=== PATIENT | male | born 1965 | race Caucasian/White ===

== ENCOUNTER 2022-03-24 10:04 | Emergency (ER) | payer OTHER, SELFPAY ==
[2022-03-24 10:08] VITALS: BP 128/86; PULSE 97; RESP 18; TEMP 36.6; O2SAT 94; BMI 35.5
--- NOTE | 2022-03-24 10:17 | CT_ITS ---
WS: [id number] CT HEAD NONCONTRAST HISTORY: visual disturbance for 2 weeks TECHNIQUE: Contiguous axial imaging performed through the brain in 2.5 mm imaging. Bone and soft tiss ue windows. Sagittal and coronal reformats reviewed. All CT scans at [facility] use at least one of these dose optimization techniques: automated exposure control; mA and/or kV adjustment per pa tient size (includes targeted exams where dose is matched to clinical indication); or iterative recon struction. DLP: 1038.51 mGy.cm COMPARISON: None available. No acute intracranial hemorrhage, midline shift or mass effect. Very mild atrophy and small vessel ischemic disease. No prior infarct. There is no mass effect upon the optic chiasm or change in attenuation along the optic tracts or radiations. Ventricles: Normal size with no hydrocephalus. No inferior displacement of the cerebellar tonsils. Paranasal sinuses: As visualized are clear. Mastoid air cells: Well pneumatized. Calvarium and scalp: Skull is intact with no soft tissue edema or swelling. CT/CT head wo con* [id number] IMPRESSION: 1. No acute intracranial hemorrhage or edema. 2. Mild atrophy and small vessel ischemic disease. 3. No mass effect upon the optic chiasm or radiation.
--- NOTE | 2022-03-24 11:43 | ED_ITS ---
HPI - General Adult General: Chief complaint: General Medical Stated complaint: Vision blur, dr sent for poss stroke Time Seen by Provider: 03/24/22 11:31 History of Present Illness: Patient is a 56-year-old male with a history of diabetes who presents the emergency room bilateral visual blurriness for the last 2 weeks. Patient tells me that on 03/08/2022, patient woke up with blurr iness on both sides. Patient denies any diplopia, amaurosis fugax, scotoma. Patient says that this started all of a sudden. Patient has been followed with Dr. Espinoza and was told to come to the emergency room for evaluation of stroke. Patient tells me since then that his vision has been blurry. Patient at baseline does not wear glasses. Patient denies having any weakness in the arms or legs, sensation changes, gait or balance instability, language speaking or communication difficulty. Patient denies any facial droop or any other changes at this time. No complaints of chest pain, shortness breath, palpitation, nausea/vomiting, diarrhea melena or hematochezia or abdominal pain. Patient denies any complaints. Onset:2 weeks ago Duration:2 weeks Location:home Severity:moderate Associated symptoms: Deny chest pain, dyspnea, nausea, rash, palpitations or vomiting Review of Systems Const: Denies: fever(s) or chills Eyes: Denies: change in vision ENMT: Reports: other (+b/l visual blurriness); Denies: mouth pain Card: Denies: chest pain or palpitations Resp: Denies: dyspnea or non-productive cough GI: Denies: abdominal pain, nausea, vomiting or diarrhea : Denies: dysuria Musc: Denies: extremity pain Skin/Breast: Denies: rash or new lesions Neuro: Denies: weakness in extremities Psych: Reports: other (Normal mood) Cody/Lymph: Denies: easy bruising PFSH ED PFSH: Medical History Diabetes Social History Smoking and tobacco status: never smoked Alcohol intake: never Physical Exam Const: COMMON NORMALS: alert HENMT: COMMON NORMALS: atraumatic HEAD & SCALP: atraumatic MOUTH: moist mucous membranes not abnormal Eye: COMMON NORMALS: EOMs intact bilaterally and conjunctivae normal CONJUNCTIVA: Yes conjunctivae normal OTHER: 20/50-70 R 20/50-70 L Neck/C-Spine: COMMON NORMALS: full ROM and supple Resp: COMMON NORMALS: normal respiratory effort and clear to auscultation bilaterally AUSCULTATION: clear to auscultation bilaterally Cardio: COMMON NORMALS: regular rate RATE: regular rate GI: COMMON NORMALS: Soft to palpation and non-tender PALPATION: Yes Soft to palpation Extremity: COMMON NORMALS: full ROM Neuro: SENSORIUM/ORIENTATION: Yes alert MOTOR EXAM: No Abnormal motor strength present and Other motor observations present (no focal motor deficits) OTHER: Mental status? Awake, alert, and oriented to self, year, month, location, and situation.? Following simple axial and appendicular commands.? Has appropriate fund of knowledge, comprehension, and insight.? Able to recall and understands pertinent aspects of medical history and current treatment status.? ? Language? Speech is fluent without word-finding difficulties.? Intact naming, expression, nurse receptionist, and repetition.? ? Cranial nerves? 2,3,4,6: PERRL, EOMI with no nystagmus. See visual acuity above 5: Intact sensation to light touch, symmetric? 7: Smile symmetrical, no facial droop.? 8: Hearing grossly intact.? 9,10: Normal palate movement.? 11: Normal strength in trapezius bilaterally 12: Tongue protrudes midline.? ? Motor examination? Normal bulk & tone. Strength as follows (R/L): Delts (5/5), Biceps (5/5), Triceps (5/5), Wrist ext (5/5), hip flexors (5/5), plantarflexors (5/5), dorsiflexors (5/5). ? Sensation? Light Touch: Grossly intact and equal in upper and lower extremities bilaterally? Romberg: Negative.? Distal joint position sense intact ? Coordination? Somhjo-ui-ihik-finger movements intact without dysmetria or past-pointing.? Rapid fingertaps: preserved amplitude without decriment.? No tremor, myoclonus or truncal ataxia.? ? Gait/stance? Steady, normal narrow base gait with appropriate arm swing and turning.? Tandem gait without hesitation or loss of balance. Psych: COMMON NORMALS: speech normal SPEECH: Yes normal speech MOOD & AFFECT: Yes euthymic mood Course Vital Signs: Vital signs: Vital Signs Temperature 98.1 F 03/24/22 14:48 Pulse Rate 76 03/24/22 14:48 Respiratory Rate 16 03/24/22 14:48 Blood Pressure 137/88 03/24/22 14:48 Pulse Oximetry 95 03/24/22 14:48 Oxygen Delivery Me thod 03/24/22 14:46 MDM - General Adult Medical Decision Making 56-year-old male with history of diabetes presenting to the emergency room for evaluation of bilateral visual blurriness for the last 2 weeks. On physical exa m, patient has a visual acuity of 20/50-70 b/l. Neurological exam is intact. CT scans showed no acute diseases. Lab work-up is unremarkable. At the present time given the fact that has been going on for 2 weeks involvement both eyes, I do not believe this is a stroke symptoms. I discussed case with Dr. Niels Botello who recommended close follow up in clinic in 1-2 weeks. I have given patient follow up with our skilled nursing case manager to be seen by our outpatient by Dr. Botello for evaluation of b/l blurriness. Patient aware of a call from our skilled nursing case manager to schedule for appointment(s) and verbalizes understanding of the importance of following up. Disposition: Discharge. Patient counseled regarding diagnostic impression, treatment plan. Patient given ED strict return precautions to return for continuation, worsening, or development of new symptoms. Instructed to f/u w/ PCP regarding symptoms today. Patient verbalized understanding. Lab Data : 03/24/22 12:22 03/24/22 12:[address] 03/24/22 10:17 IMPRESSION: 1. No acute intracranial hemorrhage or edema. 2. Mild atrophy and small vessel ischemic disease. 3. No mass effect upon the optic chiasm or radiation. Laboratory Results WBC 9.2 10^3/uL (4.0-10.0) 03/24/22 12: RBC 5.11 10^6/uL (4.1-5.3) 03/24/22 12:22 Hgb 15.2 g/dL (11.7-16.6) 03/24/22 12:22 Hct 45.4 % (42.0-52.0) 03/24/22 12:22 MCV 88.8 fl (80-94) 03/24/22 12:22 MCH 29.7 pg (28.0-34.0) 03/24/22 12:22 MCHC 33.5 g/dL (30.0-36.0) 03/24/22 12:22 RDW 12.4 % (12.1-15.1) 03/24/22 12:22 Plt Count 178 10^3/cmm (130-400) 03/24/22 12:22 MPV 10.9 fL (7.4-10.4) H 03/24/22 12:22 Neut % (Auto) 64.9 % 03/24/22 12:22 Lymph % (Auto) 26.2 % 03/24/22 12: Y[place] % (Auto) 7.6 % 03/24/22 12:22 Eos % (Auto) 0.0 % 03/24/22 12:22 Baso % (Auto) 0.5 % 03/24/22 12: Neut # (Auto) 5.98 10^3/uL (1.8-7.7) 03/24/22 12:22 Lymph # (Auto) 2.4 10^3/uL (0.8-4.8) 03/24/22 12:22 [place] # (Auto) 0.7 10^3/uL (0.2-0.9) 03/24/22 12:22 Eos # (Auto) 0.0 10^3/uL (0.0-0.8) 03/24/22 12: Baso # (Auto) 0.1 10^3/uL (0.0-0.1) 03/24/22 12:22 Nucleated RBC % (auto) 0 % 03/24/22 12:22 Nucleated RBCs # 0.0 /100WBC 03/24/22 12:22 Sodium 137 mmol/L (136-145) 03/24/22 12:03 Potassium 4.6 mmol/L (3.5-5.1) 03/24/22 12:03 Chloride 101 mmol/L (98-107) 03/24/22 12:03 Carbon Dioxide 25 mmol/L (22-29) 03/24/22 12:03 Anion Gap 15.6 (5-19) 03/24/22 12:03 BUN 15 mg/dL (6-20) 03/24/22 12:03 Creatinine 0.8 mg/dL (0.7-1.2) 03/24/22 12:03 GFR Calculation 99.3 mL/min (90-130) 03/24/22 12:03 Glucose 259 mg/dL (65-115) H 03/24/22 12:03 Calculated Osmolality 294 mOsm/kg (285-295) 03/24/22 12:03 Calcium 9.3 mg/dL (8.5-10.5) 03/24/22 12:03 Imaging Data Other Imaging: Radiologist's impression: [facility] [address] [place] [address] CT Scan Report Signed Patient: Jon Feldman Unit #: [id number] : [id number] Age/Sex: 56 / M ADM Date: 03/24/22 Loc: ER Room/Bed: Attending Dr: Ordering Provider/Ordering MD: Joe Singh MD Date of Service: 03/24/22 Procedure(s): CT head wo con* [id number] Accession Number(s): [id number] Report Number: [id number] WS: [id number] CT HEAD NONCONTRAST HISTORY: visual disturbance for 2 weeks TECHNIQUE: Contiguous axial imaging performed through the brain in 2.5 mm imaging. Bone and soft tissue windows. Sagittal and coronal reformats reviewed.? All CT scans at [facility] use at least one of these dose optimization techniques: automated exposure control; mA and/or kV adjustment per patient size (includes targeted exams where dose is matched to clinical indication); or iterative reconstruction. DLP: 1038.51 mGy.cm COMPARISON: None available. No acute intracranial hemorrhage, midline shift or mass effect. Very mild atrophy and small vessel ischemic disease.? No prior infarct. There is no mass effect upon the optic chiasm or change in attenuation along the optic tracts or radiations. Ventricles:? Normal size with no hydrocephalus. No inferior displacement of the cerebellar tonsils. Paranasal sinuses: As visualized are clear. Mastoid air cells: Well pneumatized. Calvarium and scalp: Skull is intact with no soft tissue edema or swelling. CT/CT head wo con* [id number] IMPRESSION: ? 1.? No acute intracranial hemorrhage or edema. 2.? Mild atrophy and small vessel ischemic disease. 3.? No mass effect upon the optic chiasm or radiation. ? Dictated By: Liz Dumont DO Signed By: Liz Dumont DO Signed Date/Time: 03/24/22 1201 DD/ 1157 Discharge Plan Discharge Patient Disposition: Home Clinical Impression: Visual blurriness Condition: Stable Prescriptions: No Action glipizide 10 mg Tablet 20 mg PO BID sertraline 100 mg Tablet 200 mg PO DAILY naproxen 500 mg Tablet 500 mg PO BID PRN (Reason: Pain) aripiprazole 20 mg Tablet 20 mg PO DAILY rosuvastatin 20 mg Tablet 10 mg PO BEDTIME metformin 500 mg Tablet Extended Release 24hr 1,000 mg PO BID Discharge Orders: Discharge ED (Routine); Ordered 03/24/22 Ordered By: Geraldine Arroyo Referrals: Niels Espinoza DO [Primary Care Provider] - Discharge Diet: Advance as tolerated Discharge Activity: Increase activity as tolerated Patient Instructions: Blurred Vision (ED) Activity Restrictions/Additional Instructions: Our skilled nursing case manager will have you follow-up with the [facility] with Dr. Luiz Botello in the next few days. You would be expected to have a phone call with our skilled nursing case manager who will put you on the schedule. You can expect a call from us in the next 2-3 days. If you don't hear from us, call us back in the emergency room at [phone]. Please come back to the emergency room if any blindness yes, with progression of vision changes, double vision, weakness in arms or legs, facial droop, or any new external complaints. Come back to the emergency room if any weakness in your arms or legs, if you have any facial droop, double vision, visual blindness, visual field deficits, balance problem, inability to walk, language difficulties or any neurological issues within 3 hrs. Coding Level of Care Code ED Reproduction Machine Loader for Nehemias Fwd Exam Comprehensive
[2022-03-24 12:29] LABS: Basophils # 0.1 10^3/uL (0.0-0.1); Basophils % 0.5 %; Hematocrit 45.4 % (42.0-52.0); Hemoglobin 15.2 g/dL (11.7-16.6); Lymphocytes # 2.4 10^3/uL (0.8-4.8); Lymphocytes % 26.2 %; Mean Corpuscular HGB Conc 33.5 g/dL (30.0-36.0); Mean Corpuscular Hemoglobin 29.7 pg (28.0-34.0); Mean Corpuscular Volume 88.8 fl (80-94); Mean Platelet Volume 10.9 fL (7.4-10.4); Monocytes # 0.7 10^3/uL (0.2-0.9); Monocytes % 7.6 %; Neutrophils # 5.98 10^3/uL (1.8-7.7); Neutrophils % 64.9 %; Nucleated Red Blood Cells % 0 %; Platelet Count 178 10^3/cmm (130-400); Red Blood Count 5.11 10^6/uL (4.1-5.3); Red Cell Distribution Width 12.4 % (12.1-15.1); White Blood Count 9.2 10^3/uL (4.0-10.0)
--- NOTE | 2022-03-24 12:38 | PC.NURSE ---
Visual Acuity: Corrected with glasses OU 20/70 OD 20/70 OS 20/70 Uncorrected without glasses OU 20/50 OD 20/50 OS 20/50
[2022-03-24 12:54] LABS: Anion Gap 15.6 (5-19); Blood Urea Nitrogen 15 mg/dL (6-20); Calcium 9.3 mg/dL (8.5-10.5); Carbon Dioxide 25 mmol/L (22-29); Chloride 101 mmol/L (98-107); Glomerular Filtration Rate 99.3 mL/min (90-130); Glucose 259 mg/dL (65-115); Osmolality Calculated 294 mOsm/kg (285-295); Potassium 4.6 mmol/L (3.5-5.1); Sodium 137 mmol/L (136-145)
[2022-03-24 14:48] VITALS: BP 137/88; PULSE 76; RESP 16; TEMP 36.7; O2SAT 95
--- NOTE | 2022-03-27 14:33 | DCPLANNER ---
manager environmental had message to schedule a follow up appointment with Dr. Botello. manager environmental faxed patients information to the clinic of Dr. Botello. Patients information will be reviewed, clinic will call patient with appointment information.
== END 2022-03-24 14:51 | disposition home or self-care (01) ==
PROVIDERS: Emergency Provider Emergency Medicine; PCP Emergency Medicine Emergency Medical Services
DX: H53.8 Other visual disturbances (principal); Z79.84 Long term (current) use of oral hypoglycemic drugs; E11.9 Type 2 diabetes mellitus without complications
CPT/HCPCS: 70450; 80048; 85025; 99284